=== PATIENT | female | born 1955 | race Caucasian/White ===

== ENCOUNTER 2019-04-14 16:58 | Inpatient (IN) | payer MEDICARE, OTHER ==
[~2019-04-14] VITALS: Ht 170.2 cm; Wt 80.7 kg
--- NOTE | 2019-04-14 17:10 | NUR ---
Patient bib pvt ambulance from [facility] for GPS admission. Patient A/Ox3 with periods of delusions. Respiratory even and unlabored, no cough no sob. Denies any cp or n/v/d.
[2019-04-14] MEDS ORDERED: FURO40TA5 PO (17:25)
[2019-04-14] MEDS ORDERED: GABA-532 PO (17:25)
[2019-04-14] MEDS ORDERED: DIVA500T4 PO (17:25)
[2019-04-14] MEDS ORDERED: DULO60CA45 PO (17:26)
[2019-04-14] MEDS ORDERED: CLON0.2T12 PO (17:26)
[2019-04-14] MEDS ORDERED: BACL20TA PO (17:26)
[2019-04-14] MEDS ORDERED: PANT40TA2 PO (17:35)
[2019-04-14] MEDS ORDERED: EMPA10TA PO (17:55)
[2019-04-14] MEDS ORDERED: ASPI-869 PO (17:55)
[2019-04-14] MEDS ORDERED: LEVO25TA2 PO (17:55)
[2019-04-14] MEDS ORDERED: HYDR8TAB2 PO (17:58)
[2019-04-14] MEDS ORDERED: CYCL10TA9 PO (17:58)
[2019-04-14] MEDS ORDERED: IBUP-1953 PO (17:58)
--- NOTE | 2019-04-14 18:00 | NUR ---
Report given to MIRIAN Gilmore
[2019-04-14] MEDS ORDERED: MULT1TAB73 PO (18:01)
[2019-04-14] MEDS ORDERED: METO50TA16 PO (18:01)
[2019-04-14] MEDS ORDERED: ESTR2TAB5 PO (18:01)
[2019-04-14] MEDS ORDERED: DOCU-141 PO (18:02)
[2019-04-14] MEDS ORDERED: PSYL1PAC8 PO (18:02)
[2019-04-14] MEDS ORDERED: SUB--70 (18:04)
[2019-04-14] MEDS ORDERED: LORAZEPAM 1 MG TABLET PO PRN (18:15)
[2019-04-14] MEDS ORDERED: MAGNESIUM HYDROXIDE 30 ML LIQUID UDC PO PRN (18:15)
[2019-04-14] MEDS ORDERED: MAG HYDROX/AL HYDROX/SIMETH 30 ML LIQUID UDC PO PRN (18:15)
[2019-04-14] MEDS ORDERED: BLOOD SUGAR DIAGNOSTIC 1 EACH STRIP VI ONE (18:15)
[2019-04-14] MEDS ORDERED: ACETAMINOPHEN 325 MG TABLET PO PRN (18:15)
--- NOTE | 2019-04-14 18:19 | NUR ---
Patient transported to MHU in stable condition.
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
[2019-04-14] MEDS ORDERED: IBUPROFEN 400 MG TABLET PO PRN (20:00)
[2019-04-14] MEDS ORDERED: CLONIDINE HCL 0.2 MG TABLET PO PRN (20:00)
[2019-04-14] MEDS ORDERED: DEXTROSE 50% 50 ML DISP.SYRIN IV PRN (20:30)
[2019-04-14] MEDS: BLOOD SUGAR DIAGNOSTIC 1 EACH STRIP VI SCH (20:44)
[2019-04-14 21:10] VITALS: BP 142/80
[2019-04-14] MEDS: TEMAZEPAM 7.5 MG CAPSULE PO PRN (22:02)
[2019-04-15] MEDS ORDERED: HYDROMORPHONE HCL 2 MG TABLET ONE (00:47)
[2019-04-15] MEDS: HYDROMORPHONE HCL 2 MG TABLET PO PRN ×5 (00:48→21:35)
[2019-04-15] MEDS: PANTOPRAZOLE SODIUM 40 MG TABLET.DR PO SCH (06:13)
[2019-04-15] MEDS: BLOOD SUGAR DIAGNOSTIC 1 EACH STRIP VI SCH ×4 (06:48→20:28)
[2019-04-15 07:30] VITALS: BP 139/85
[2019-04-15] MEDS: LEVOTHYROXINE SODIUM 25 MCG TABLET PO SCH ×2 (07:32→07:38)
[2019-04-15 08:42] LABS: BASOPHILS # (AUTO) 0.1 K/uL (0.0-8.0); BASOPHILS % (AUTO) 0.9 % (0.0-2.0); EOSINOPHILS # (AUTO) 0.1 K/uL (0.0-0.7); EOSINOPHILS % (AUTO) 1.4 % (0.0-7.0); HEMATOCRIT 40.8 % (31.2-41.9); LYMPHOCYTES # (AUTO) 2.1 K/uL (20.0-40.0); LYMPHOCYTES % (AUTO) 22.8 % (20.5-51.5); MEAN CORPUSCULAR HEMOGLOBIN 24.4 uug (24.7-32.8); MEAN CORPUSCULAR HGB CONC 32 g/dL (32.3-35.6); MEAN CORPUSCULAR VOLUME 76.2 fL (75.5-95.3); MONOCYTES # (AUTO) 0.6 K/uL (2.0-10.0); MONOCYTES % (AUTO) 6.5 % (0.0-11.0); NEUTROPHILS # (AUTO) 6.2 K/uL (1.8-8.9); NEUTROPHILS % (AUTO) 68.4 % (38.5-71.5); PLATELET COUNT (AUTO) 394 K/uL (179-408); RED BLOOD CELL COUNT(AUTO) 5.36 MIL/uL (3.63-4.92); WHITE BLOOD COUNT (AUTO) 9.1 K/uL (3.8-11.8)
[2019-04-15] MEDS: FUROSEMIDE 40 MG TABLET PO SCH ×2 (08:50→16:53)
[2019-04-15] MEDS: METOPROLOL TARTRATE 50 MG TABLET PO SCH ×2 (08:50→16:53)
[2019-04-15] MEDS: BACLOFEN 20 MG TABLET PO SCH ×3 (08:51→16:53)
[2019-04-15] MEDS: DOCUSATE SODIUM 100 MG CAPSULE PO SCH (08:51)
[2019-04-15] MEDS: ESTRADIOL 1 MG TABLET PO SCH (08:51)
[2019-04-15] MEDS: GABAPENTIN 100 MG CAPSULE PO SCH ×2 (08:51→16:53)
[2019-04-15] MEDS: PSYLLIUM SEED PACKET PO SCH ×2 (08:52→16:53)
[2019-04-15] MEDS: MULTIVITAMINS,THERAPEUTIC TABLET PO SCH (08:52)
[2019-04-15] MEDS: ASPIRIN EC 325 MG TABLET.DR PO SCH (08:53)
[2019-04-15] MEDS ORDERED: Medication Not On Formulary EA (Empagliflozin (Jardiance) 10 MG) PO SCH (09:00)
[2019-04-15 09:54] LABS: BILIRUBIN,TOTAL 0.4 mg/dL (0.2-1.0); MAGNESIUM 2.3 mg/dL (1.8-2.4); POTASSIUM 3.9 mmol/L (3.5-5.1); TOTAL PROTEIN, SERUM 8.2 g/dL (6.4-8.2)
[2019-04-15] MEDS: INSULIN REGULAR, HUMAN 300 UNIT/3 ML VIAL SQ PRN (11:44)
[2019-04-15] MEDS: CYCLOBENZAPRINE HCL 10 MG TABLET PO SCH ×2 (14:00→21:30)
[2019-04-15 16:00] VITALS: BP 106/74
[2019-04-15 21:08] VITALS: BP 136/76
[2019-04-16] MEDS: CYCLOBENZAPRINE HCL 10 MG TABLET PO SCH ×3 (05:58→22:32)
[2019-04-16] MEDS: PANTOPRAZOLE SODIUM 40 MG TABLET.DR PO SCH (06:01)
[2019-04-16] MEDS: BLOOD SUGAR DIAGNOSTIC 1 EACH STRIP VI SCH ×4 (06:39→20:33)
[2019-04-16 07:30] VITALS: BP 151/85
[2019-04-16] MEDS: HYDROMORPHONE HCL 2 MG TABLET PO PRN ×4 (07:45→20:33)
[2019-04-16] MEDS: BACLOFEN 20 MG TABLET PO SCH ×3 (08:19→18:11)
[2019-04-16] MEDS: ESTRADIOL 1 MG TABLET PO SCH (08:19)
[2019-04-16] MEDS: ASPIRIN EC 325 MG TABLET.DR PO SCH (08:19)
[2019-04-16] MEDS: FUROSEMIDE 40 MG TABLET PO SCH ×2 (08:20→16:26)
[2019-04-16] MEDS: GABAPENTIN 100 MG CAPSULE PO SCH ×2 (08:20→16:26)
[2019-04-16] MEDS: DOCUSATE SODIUM 100 MG CAPSULE PO SCH (08:20)
[2019-04-16] MEDS: METOPROLOL TARTRATE 50 MG TABLET PO SCH ×2 (08:20→16:26)
[2019-04-16] MEDS: MULTIVITAMINS,THERAPEUTIC TABLET PO SCH (08:28)
[2019-04-16] MEDS: PSYLLIUM SEED PACKET PO SCH ×2 (08:28→16:28)
[2019-04-16] MEDS: INSULIN REGULAR, HUMAN 300 UNIT/3 ML VIAL SQ PRN (08:29)
--- NOTE | 2019-04-16 10:14 | NUR ---
Social Work Note/Initial Discharge Planning: Patient currently resides at [facility] [address] [place] [address]; ([phone]).Patient will contact admin coordinator to see if patient is welcomed back. medical office worker will work with the patient and the MD regarding appropriate discharge planning. medical office worker will form a safe and proper discharge.
[2019-04-16 12:03] VITALS: BP 129/81
--- NOTE | 2019-04-16 12:24 | NUR ---
Received patient awake, alert and oriented x4. Bed is in low and locked position. Patient is able to ambulate independently and perform self care and ADL's independently. Patient is medication adherent, no adverse reaction noted. Patient is focused on PRN pain medication. Patient educated about importance of taking medication as prescribed, educated about risks and benefits of medication. Able to verbalize understanding, she endorses severe pain due to chronic medical conditions, endorses her only relief is pain medication. Patient education about non-pharmacological pain relief techniques, verbalizes understanding. Patient education about impulse control and how to appropriately communicate her needs to staff, able to verbalize understanding.
--- NOTE | 2019-04-16 12:27 | NUR ---
Patient refused AM sliding scale insulin administration and refused accucheck before lunch. Patient states "I only check my blood sugar twice, I've been managing it on my own for 4 years now and I'm fine." Patient educated about importance of taking insulin and checking blood sugar, and risks and benefits of remaining adherent. Patient able to verbalize understanding but continues to refuse. Patient is showing no signs or symptoms of hypo/hyperglycemia. Patient educated about these symptoms and encouraged to inform staff if any of these occur, able to verbalize understanding. VSS at this time.
--- NOTE | 2019-04-16 13:15 | NUR ---
VS BP 129/81, heart rate 83, RR 15, 97% room air. Blood sugar 107 Patient reported severe pain 10/10 "everywhere. In my head, my back, all over." PRN Dilaudid administered with no adverse reaction. Patient tolerated medication well. Patient is alert and oriented x4. Respirations are even and unlabored, no signs of respiratory distress noted. Patient reports medication was effective, pain 2/10. Patient educated about non-pharmacological pain reduction techniques, able to verbalize understanding. Patient provided with diversional activities (television, reading, talking to others). Blood sugar is 107. Patient given snack and water. Tolerated food and fluids well. No insulin administered per sliding scale. Addendum: 04/16/19 at 1805 by SANDI MCCLENDON RN Blood sugar reading taken at 1600.
--- NOTE | 2019-04-16 14:05 | NUR ---
WOUND CARE CONSULT: PT PRESENTS AMBULATORY AND CONTINENT WITH MULTIPLE DRY SCABS AND SCARS TO UPPER AND LOWER EXTREMITIES, PRESENT ON ADMISSION. CALLUSES NOTED TO FEET. PT IS REFUSING TO WEAR SLIPPER SOCKS. WILL SEE PRN.
[2019-04-16 15:08] LABS: *BILIRUBIN,URIN NEGATIVE (NEGATIVE); *BLOOD, URINE NEGATIVE (NEGATIVE); *CLARITY,URINE SLIGHTLY CLOUDY (CLEAR); *COLOR,URINE YELLOW (YELLOW); *KETONES,URINE NEGATIVE (NEGATIVE); *UROBILINOGEN,URINE 0.2 E.U./dl (NORMAL); LEUKOCYTE ESTERASE ,URINE 1+ (NEGATIVE); NITRITE, URINE NEGATIVE (NEGATIVE); UGLUCOSE TRACE (NEGATIVE)
[2019-04-16 15:19] LABS: BACTERIA,URINE FEW /HPF (NONE SEEN); MUCUS,URINE MANY /LPF (0-FEW); RBC,URINE 0-3 /HPF (0-3); SQUAMOUS EPITHELIAL CELL,UR MODERATE /HPF (NONE SEEN)
[2019-04-16 16:00] VITALS: BP 146/63
--- NOTE | 2019-04-16 17:35 | NUR ---
VS BP 146/63, Pulse 93, Resp 16, 100% room air Patient reported severe pain 10/10 "in my whole body". PRN Dilaudid administered without adverse reaction. Patient tolerated well. Patient reports medication was effective, with pain reduced to 2/10. Patient is alert and oriented x4, sitting in the dining room socializing with other patients. Respirations are even and unlabored, no signs of respiratory distress noted. Patient tolerating food and fluids well. Will continue to monitor.
[2019-04-16 20:00] VITALS: BP 136/76
[2019-04-17] MEDS: HYDROMORPHONE HCL 2 MG TABLET PO PRN ×6 (01:28→22:41)
[2019-04-17] MEDS: CYCLOBENZAPRINE HCL 10 MG TABLET PO SCH ×3 (05:29→21:32)
[2019-04-17] MEDS: LEVOTHYROXINE SODIUM 25 MCG TABLET PO SCH (06:23)
[2019-04-17] MEDS: PANTOPRAZOLE SODIUM 40 MG TABLET.DR PO SCH (06:23)
[2019-04-17] MEDS: BLOOD SUGAR DIAGNOSTIC 1 EACH STRIP VI SCH ×4 (06:34→20:50)
[2019-04-17 07:30] VITALS: BP 140/80
--- NOTE | 2019-04-17 08:20 | NUR ---
Social Work Note/Family Contact: drop pit worker contacted patients adopted son Franki ([phone]) and left a voicemail in regard to patients treatment plan and discharge plan.
[2019-04-17] MEDS: METOPROLOL TARTRATE 50 MG TABLET PO SCH ×2 (08:34→16:37)
[2019-04-17] MEDS: NITROFURANTOIN/NITROFURAN MAC 100 MG CAPSULE PO SCH ×2 (08:34→16:36)
[2019-04-17] MEDS: GABAPENTIN 100 MG CAPSULE PO SCH ×2 (08:34→16:36)
[2019-04-17] MEDS: MULTIVITAMINS,THERAPEUTIC TABLET PO SCH (08:34)
[2019-04-17] MEDS: FUROSEMIDE 40 MG TABLET PO SCH ×2 (08:35→16:37)
[2019-04-17] MEDS: PSYLLIUM SEED PACKET PO SCH ×2 (08:35→16:42)
[2019-04-17] MEDS: BACLOFEN 20 MG TABLET PO SCH ×3 (08:35→16:38)
[2019-04-17] MEDS: ASPIRIN EC 325 MG TABLET.DR PO SCH (08:36)
[2019-04-17] MEDS: ESTRADIOL 1 MG TABLET PO SCH (08:36)
[2019-04-17] MEDS: DOCUSATE SODIUM 100 MG CAPSULE PO SCH (08:38)
--- NOTE | 2019-04-17 10:15 | NUR ---
Social Work Note/Individual Therapy: survey workers supervisor met with patient to provided brief counseling. Patient presented tearful and agitated. She stated that she feels frustration here at the hospital. This story writer provided emotional support and was actively listening to patient. This story writer helped patient identify the negative feelings and helped her change it to positive feelings. This story writer helped patient with positive problem skills due to patient having poor problem solving skills.
[2019-04-17 17:05] VITALS: BP 137/79
[2019-04-17 19:56] VITALS: BP 140/68
--- NOTE | 2019-04-18 00:30 | NUR ---
RECEIVED PATIENT IN ACTIVITY ROOM. LATER SAW HER PACING THE HALLWAY A FEW TIMES AND GOING BACK TO WATCH T.V. BECOMES IRRITABLE WHEN DEMANDS ARE NOT MET.SHE WANTED HER PAIN MEDICATION AND WHEN TOLD TO WAIT TILL IT WAS TIME SHE SAID 'I HAVE NEVER KNOWN A PAIN FREE LIFE". SHE REFUSED TO HAVE HER BLOOD SUGAR CHECKED. HOWEVER SHOWS NO SIGNS OF HYPOGLYCEMIA.ENCOURAGED TO LET STAFF KNOW IF SHE DOES.WILL CONTINUE TO MONITOR.
[2019-04-18] MEDS: LEVOTHYROXINE SODIUM 25 MCG TABLET PO SCH ×2 (06:23→06:35)
[2019-04-18] MEDS: CYCLOBENZAPRINE HCL 10 MG TABLET PO SCH ×3 (06:23→23:06)
[2019-04-18] MEDS: PANTOPRAZOLE SODIUM 40 MG TABLET.DR PO SCH (06:23)
[2019-04-18] MEDS: BLOOD SUGAR DIAGNOSTIC 1 EACH STRIP VI SCH ×4 (06:37→20:07)
[2019-04-18] MEDS: HYDROMORPHONE HCL 2 MG TABLET PO PRN ×4 (06:39→20:04)
--- NOTE | 2019-04-18 06:46 | NUR ---
SLEPT FOR APPROX 06;30HRS. AGREED TO BLOOD SUGAR CHECKS THIS AM.LEVEL WAS 120.GIVEN DILAUDID 8MG THIS MARIA GUADALUPE AT 06;40
[2019-04-18 07:30] VITALS: BP 141/80
[2019-04-18] MEDS: BACLOFEN 20 MG TABLET PO SCH ×3 (08:30→17:24)
[2019-04-18] MEDS: DOCUSATE SODIUM 100 MG CAPSULE PO SCH (08:31)
[2019-04-18] MEDS: NITROFURANTOIN/NITROFURAN MAC 100 MG CAPSULE PO SCH ×2 (08:31→17:25)
[2019-04-18] MEDS: FUROSEMIDE 40 MG TABLET PO SCH ×2 (08:31→17:24)
[2019-04-18] MEDS: GABAPENTIN 100 MG CAPSULE PO SCH ×2 (08:31→17:25)
[2019-04-18] MEDS: METOPROLOL TARTRATE 50 MG TABLET PO SCH ×2 (08:31→17:25)
[2019-04-18] MEDS: ASPIRIN EC 325 MG TABLET.DR PO SCH (08:32)
[2019-04-18] MEDS: PSYLLIUM SEED PACKET PO SCH ×2 (08:32→17:00)
[2019-04-18] MEDS: ESTRADIOL 1 MG TABLET PO SCH (08:32)
[2019-04-18] MEDS: MULTIVITAMINS,THERAPEUTIC TABLET PO SCH (08:32)
--- NOTE | 2019-04-18 12:19 | NUR ---
Social Work Note/Individual Therapy: sawmill worker met with brief counseling. Patient presented delusional thoughts and stated that staff is not properly taking care of her needs. This bid writer addressed patients problem and helped her better communicate with the staff.
[2019-04-18 16:00] VITALS: BP 132/69
[2019-04-18 20:00] VITALS: BP 132/73
[2019-04-18] MEDS ORDERED: MIRALAX 17 GM POWD.PACK PO ONE (20:30)
--- NOTE | 2019-04-18 20:30 | NUR ---
GPS: Pt.is upset,angry,crying and complaining that it's been 4 days and she has not spoken to her printer repair technician yet. Pt.has concerns regarding her bowels. KAMRAN Camarillo was made aware with new order. Pt.refused Miralax x1 dose ordered now.
[2019-04-19] MEDS: HYDROMORPHONE HCL 2 MG TABLET PO PRN ×5 (00:05→22:09)
[2019-04-19] MEDS: TEMAZEPAM 7.5 MG CAPSULE PO PRN (00:54)
[2019-04-19] MEDS: CYCLOBENZAPRINE HCL 10 MG TABLET PO SCH ×3 (06:00→21:56)
[2019-04-19] MEDS: LEVOTHYROXINE SODIUM 25 MCG TABLET PO SCH (06:41)
[2019-04-19] MEDS: BLOOD SUGAR DIAGNOSTIC 1 EACH STRIP VI SCH ×5 (06:41→22:10)
[2019-04-19] MEDS: PANTOPRAZOLE SODIUM 40 MG TABLET.DR PO SCH (06:43)
[2019-04-19 07:30] VITALS: BP 128/80
[2019-04-19] MEDS: INSULIN REGULAR, HUMAN 300 UNIT/3 ML VIAL SQ PRN ×3 (07:38→22:11)
[2019-04-19] MEDS: ASPIRIN EC 325 MG TABLET.DR PO SCH (08:25)
[2019-04-19] MEDS: BACLOFEN 20 MG TABLET PO SCH ×3 (08:26→17:11)
[2019-04-19] MEDS: NITROFURANTOIN/NITROFURAN MAC 100 MG CAPSULE PO SCH ×2 (08:26→17:11)
[2019-04-19] MEDS: ESTRADIOL 1 MG TABLET PO SCH (08:26)
[2019-04-19] MEDS: FUROSEMIDE 40 MG TABLET PO SCH ×2 (08:26→17:11)
[2019-04-19] MEDS: GABAPENTIN 100 MG CAPSULE PO SCH ×2 (08:26→17:11)
[2019-04-19] MEDS: DOCUSATE SODIUM 100 MG CAPSULE PO SCH (08:26)
[2019-04-19] MEDS: PSYLLIUM SEED PACKET PO SCH ×2 (08:27→17:00)
[2019-04-19] MEDS: METOPROLOL TARTRATE 50 MG TABLET PO SCH ×2 (08:27→17:00)
[2019-04-19] MEDS: MULTIVITAMINS,THERAPEUTIC TABLET PO SCH (08:27)
--- NOTE | 2019-04-19 09:50 | NUR ---
Social Work Note/Family Contact: telecommunications linesworker attempted to contact patients adopted son Franki ([phone]) and this literary writer was unable to reach him. This literary writer left a voicemail to call back.
--- NOTE | 2019-04-19 09:51 | NUR ---
Social Work Note/PC Hearing Notification: transit survey worker contacted patients adopted son Franki, ([phone]) and left a voicemail that patients probable cause of hearing today.
--- NOTE | 2019-04-19 13:09 | NUR ---
Social Work Note/Firearms Report: Neighborhood Conservation Officer completed and submitted a [employer] firearms report for 5250 grave disability certification. A copy of report has been placed in patient chart.
[2019-04-19] MEDS: DULOXETINE 30 MG CAPSULE.DR PO SCH (13:37)
--- NOTE | 2019-04-19 14:38 | NUR ---
Patient has been irritable and aggressive all day. Multiple complaints made about the Doctors and the staff. Patient walking up and down hallway , refusing to wear hospital socks, despite many requests by the staff. Patient receiving multiple pain medications, and educated on noncompliance being a safety issue. Patient not interested, and behavior escalates when challenged. Nurse programming development project manager aware of patients complaints. Continuing to monitor patient for safety and behavior issues.
--- NOTE | 2019-04-19 17:15 | NUR ---
Patient refused to allow VS to be taken this afternoon. Blood pressure medication was held. Patient also refused insulin this evening with a blood glucose of 145.
[2019-04-19] MEDS ORDERED: HYDROMORPHONE HCL 2 MG TABLET PO PRN (18:15)
[2019-04-19] MEDS ORDERED: CYCLOBENZAPRINE HCL 10 MG TABLET PO PRN (18:15)
[2019-04-19] MEDS ORDERED: DOCUSATE SODIUM 100 MG CAPSULE PO SCH (21:00)
[2019-04-20] MEDS: HYDROMORPHONE HCL 2 MG TABLET PO PRN ×3 (02:23→11:27)
[2019-04-20] MEDS: CYCLOBENZAPRINE HCL 10 MG TABLET PO SCH ×2 (06:25→11:28)
[2019-04-20] MEDS: PANTOPRAZOLE SODIUM 40 MG TABLET.DR PO SCH (06:25)
[2019-04-20] MEDS: BLOOD SUGAR DIAGNOSTIC 1 EACH STRIP VI SCH ×2 (06:33→11:30)
[2019-04-20] MEDS: LEVOTHYROXINE SODIUM 25 MCG TABLET PO SCH (06:59)
[2019-04-20 07:30] VITALS: BP 105/51
--- NOTE | 2019-04-20 08:11 | NUR ---
Social Work Note/Discharge: Patient will be discharged to [facility] to [facility] [place] [address] [place] [address]; ) via Ambulance transportation at 12pm. Knife Edger spoke with Meera, Brim Stiffener at [facility] [place]; ([phone]), who stated patient will be accepted at facility today. Patient is alert and oriented x3-4, and is not able to plan for self-care at this time, but is willing to accept care provided for her at the facility. Patient denies any suicidal or homicidal ideations. Patient is aware and agreeable with discharge plans. Patients adopted son Franki ([phone]) is aware and agreeable. Patient will continue to follow-up with her Psychiatrist Dr. Kumar and Perforating Machine Operator Dr. Vital at [facility]. Patient will follow-up at the center. Patient presents with euthymic mood and congruent affect.
--- NOTE | 2019-04-20 08:12 | NUR ---
Social Work Note/Family Contact: wet room worker contacted patients adopted son Franki ([phone]) that patient will be discharged today and left a voicemail.
--- NOTE | 2019-04-20 08:13 | NUR ---
Social Work Note: ditch worker spoke with patient for facility options. Per patient, she agreed to go to [facility]
[2019-04-20] MEDS: NITROFURANTOIN/NITROFURAN MAC 100 MG CAPSULE PO SCH (08:18)
[2019-04-20] MEDS: GABAPENTIN 100 MG CAPSULE PO SCH (08:18)
[2019-04-20] MEDS: BACLOFEN 20 MG TABLET PO SCH (08:18)
[2019-04-20] MEDS: ASPIRIN EC 325 MG TABLET.DR PO SCH (08:18)
[2019-04-20] MEDS: DULOXETINE 30 MG CAPSULE.DR PO SCH (08:18)
[2019-04-20] MEDS: FUROSEMIDE 40 MG TABLET PO SCH (08:20)
[2019-04-20] MEDS: ESTRADIOL 1 MG TABLET PO SCH (08:21)
[2019-04-20] MEDS: MULTIVITAMINS,THERAPEUTIC TABLET PO SCH (08:29)
[2019-04-20] MEDS: PSYLLIUM SEED PACKET PO SCH (08:30)
[2019-04-20 09:00] VITALS: BP 105/51
[2019-04-20] MEDS: METOPROLOL TARTRATE 50 MG TABLET PO SCH (09:00)
[2019-04-20] MEDS ORDERED: DOCUSATE SODIUM 250 MG CAPSULE PO SCH (09:00)
--- NOTE | 2019-04-20 13:00 | NUR ---
Gps/Hat Finisher-Tries to review discharged instructions, patient refused to sign. All belongings returned back to patient( tablet, cell phone , purse, check books). Patient taking her times, kept asking for simple needs, refused to be rushed .Called [facility], SNF report was given to Debora Doyle , patient assigned to bed # 136-D.
--- NOTE | 2019-04-20 13:20 | NUR ---
Gps/Senior Mechanical Designer- Discharged to [facility] [place], in no distress, in good spirit ,no new c/o offered.
[2019-04-26] MEDS ORDERED: DULO60CA45 PO (16:02)
[2019-04-26] MEDS ORDERED: ARIP5TAB10 PO (16:02)
[2019-04-26] MEDS ORDERED: DOXY100C2 PO (16:02)
== END 2019-04-20 13:25 | DRG 885 ==
LOC: ER 17:01 → GPS 17:52
PROVIDERS: ADMIT Psychiatry & Neurology Psychiatry; ATTEND Hospitalist
PROC: GZ56ZZZ Individual Psychotherapy, Supportive (ICD-10-PCS; principal; 2019-04-16)
DX: F33.2 Major depressive disorder, recurrent severe without psychotic features (principal); I13.0 Hypertensive heart and chronic kidney disease with heart failure and stage 1 through stage 4 chronic kidney disease, or unspecified chronic kidney disease; N39.0 Urinary tract infection, site not specified; E44.1 Mild protein-calorie malnutrition; F11.20 Opioid dependence, uncomplicated; J98.11 Atelectasis; Q07.00 Arnold-Chiari syndrome without spina bifida or hydrocephalus; E11.22 Type 2 diabetes mellitus with diabetic chronic kidney disease; N18.9 Chronic kidney disease, unspecified; I50.9 Heart failure, unspecified; M19.90 Unspecified osteoarthritis, unspecified site; E11.42 Type 2 diabetes mellitus with diabetic polyneuropathy; Z86.73 Personal history of transient ischemic attack (TIA), and cerebral infarction without residual deficits; G89.4 Chronic pain syndrome; J44.9 Chronic obstructive pulmonary disease, unspecified; R23.8 Other skin changes; E78.5 Hyperlipidemia, unspecified; E03.9 Hypothyroidism, unspecified
CPT/HCPCS: 36415; 71045; 83735; 84100; 85025; 87086; 93005; A4663; J1815

== ENCOUNTER 2019-04-24 19:00 | Inpatient (IN) | payer MEDICARE, OTHER ==
[~2019-04-24] VITALS: Ht 165.1 cm; Wt 77.1 kg
[2019-04-24] MEDS ORDERED: IV NORMAL SALINE 1000 ML BAG IV ONE ×2 (22:00→23:45)
[2019-04-24] MEDS ORDERED: VANCOMYCIN IV 1,000 MG in IV DEXTROSE 5% 250 ML IV ONE (22:00)
[2019-04-24] MEDS ORDERED: VANCOMYCIN IV 200 ML ONE (22:08)
[2019-04-24 22:16] LABS: BASOPHILS # (AUTO) 0.1 K/uL (0.0-8.0); BASOPHILS % (AUTO) 1.1 % (0.0-2.0); EOSINOPHILS # (AUTO) 0.2 K/uL (0.0-0.7); EOSINOPHILS % (AUTO) 1.7 % (0.0-7.0); HEMATOCRIT 41.2 % (31.2-41.9); HEMOGLOBIN 13.3 g/dL (10.9-14.3); LYMPHOCYTES # (AUTO) 3.2 K/uL (20.0-40.0); MEAN CORPUSCULAR HEMOGLOBIN 24.8 uug (24.7-32.8); MEAN CORPUSCULAR HGB CONC 32 g/dL (32.3-35.6); MEAN CORPUSCULAR VOLUME 76.5 fL (75.5-95.3); MONOCYTES # (AUTO) 0.7 K/uL (2.0-10.0); MONOCYTES % (AUTO) 6.8 % (0.0-11.0); NEUTROPHILS # (AUTO) 5.5 K/uL (1.8-8.9); NEUTROPHILS % (AUTO) 57.4 % (38.5-71.5); PLATELET COUNT (AUTO) 367 K/uL (179-408); RED BLOOD CELL COUNT(AUTO) 5.38 MIL/uL (3.63-4.92); WHITE BLOOD COUNT (AUTO) 9.7 K/uL (3.8-11.8)
[2019-04-24 22:18] LABS: CARBON DIOXIDE 33 mmol/L (21-32); CHLORIDE 100 mmol/L (98-107); POTASSIUM 3.7 mmol/L (3.5-5.1)
[2019-04-24 22:24] LABS: ALANINE AMINOTRANSFERASE 31 U/L (14-59); ALKALINE PHOSPHATASE 147 U/L (50-136); ASPARTATE AMINOTRANSFERASE 23 U/L (15-37); BILIRUBIN,DIRECT 0.1 mg/dL (0.0-0.2); BILIRUBIN,TOTAL 0.3 mg/dL (0.2-1.0); CREATININE 1.1 mg/dL (0.6-1.3); GLUCOSE 146 mg/dL (74-106); TOTAL PROTEIN, SERUM 8.7 g/dL (6.4-8.2); UREA NITROGEN, BLOOD 23 mg/dL (7-18)
[2019-04-24 22:25] LABS: ACETAMINOPHEN < 2.0 ug/mL (10-30)
[2019-04-24 22:27] LABS: ETHANOL < 3 MG/DL (0-0)
--- NOTE | 2019-04-24 23:00 | NUR ---
EPIC PLANNING DIRECTOR (ROMEO EDMONDSON) ON THE PHONE WITH ERMD OK TO ADMIT TO TELE RM DX: CELLULITIS
--- NOTE | 2019-04-24 23:21 | NUR ---
HAND OFF AND SBAR GIVEN TO JUAN RN PT OK TO ADMIT TO M/S UNDER DELVIS DX: CELLULITIS PT RA RECEIVED ABX ORDERED PER IV CANCELLED PICC LINE REQUEST MONITORED ACCORDINGLY
--- NOTE | 2019-04-25 00:04 | NUR ---
TRANSPORTED TO FLOOR VIA GURNEY ACC BY ER BLADE GRADER OPERATOR (DOLORES) BELONGINGS LIST ACCOUNTED FOR
[2019-04-25 00:15] VITALS: BP 140/70
--- NOTE | 2019-04-25 00:15 | NUR ---
NEW ADMIT PATIENT RECEIVED INTO CARE VIA GURNEY FROM ER. PATIENT IS AMBULATORY AND IS ALERT/ORIENTED X3 COMPLAINING OF GENERALIZED PAIN RELATED TO HER CHRONIC HEALTH CONDITIONS. PATIENT STATES HAS ADVANCED DIRECTIVE STATING DNR/COMFORT MEASURES ONLY. NURSE ADVISED MUST PROVIDE COPY. WILL HAVE AM SHIFT NOTIFY MD WITH REGARD TO PATIENT'S WISHES FOR RESUSCITATION. PATIENT HAS MULTIPLE SORES IN DIFFERENT STAGES OF HEALING WHICH SHE CLAIMS IS STAPH. WILL HAVE AM SHIFT FOLLOWUP WITH MD TO ORDER INFECTIOUS DISEASE CONSULT. SAFETY AND FALL PRECAUTION MEASURES ARE IN PLACE. CALL LIGHT AND PERSONAL ITEMS ARE WITHIN REACH. WILL CONTINUE TO MONITOR AND ASSESS.
[2019-04-25] MEDS ORDERED: ACETAMINOPHEN 325 MG TABLET PO PRN (00:45)
[2019-04-25] MEDS ORDERED: ONDANSETRON 4 MG/2 ML VIAL IV PRN (00:45)
[2019-04-25] MEDS ORDERED: ZOLPIDEM 5 MG TABLET PO PRN ×2 (00:45)
[2019-04-25] MEDS: HYDROMORPHONE 1 MG/1 ML DISP.SYRIN IV PRN ×5 (01:53→21:34)
[2019-04-25 05:59] VITALS: BP 143/80
--- NOTE | 2019-04-25 06:00 | NUR ---
Patient slept throughout night following admission to unit, with complaints of pain addressed with prescribed analgesics. Patient has signed POLST for DNR/comfort measures only, and it has been flagged in her chart for physician signature. All nursing care met promptly and patient is warm, dry and comfortable. All safety and fall precaution measures remain in place. Call light and personal items are within reach at all times.
[2019-04-25] MEDS: PANTOPRAZOLE SODIUM 40 MG TABLET.DR PO SCH (06:02)
--- NOTE | 2019-04-25 06:32 | NUR ---
Patient refused blood draw with lab this morning. Lab said they will retry again at 1000h
--- NOTE | 2019-04-25 08:00 | NUR ---
received pt. alert oriented x4. Upon entering room pt. appears paranoid and that she hears everyone talking about her. Reoriented pt. Pt. denies pain/ discomfort. Pt. denies SOB/ difficulty breathing. Pt. has rashes on bilateral arms and legs. Safety measures in place. call light within reach. will continue to monitor pt.
--- NOTE | 2019-04-25 10:48 | NUR ---
Clinical Pharmacy Note: Vancomycin Pharmacy to Dose Subjective: To start vancomycin in this 63 y/o female for indication of cellulitis Objective: weight 77kg height 165cm BUN/Scr 23/1.1 wbc 9.7 temp 97.7 Vanco 1gm in ER 04/25 @5227 Assessment/Plan Will start regimen of vanco 1gm q18hr for estimated trough of 16.22, 2nd dose tonight at 1700. Will order trough before 4th scheduled dose (not ordered yet). Will also follow renal function and adjust if were to change. Will follow
[2019-04-25 11:22] VITALS: BP 140/72
[2019-04-25] MEDS: ARIPIPRAZOLE 5 MG TABLET PO SCH (11:44)
[2019-04-25] MEDS: DULOXETINE 60 MG CAPSULE.DR PO SCH (11:44)
--- NOTE | 2019-04-25 12:13 | NUR ---
WOUND CARE CONSULT: PT PRESENTS WITH MULTIPLE DRY SCABS AND SCARS MAINLY ON EXTREMITIES WITH WOUNDS, REDNESS AND TENDERNESS TO PLANTAR FEET, ALL PRESENT ON ADMISSION. RECOMMEND DPM CONSULT. DR PIRES NOTIFIED OF DPM CONSULT REQUEST. WILL SEE PRN. PT IS AMBULATORY AND CONTINENT. Addendum: 04/25/19 at 1214 by CHRIS SEWELL RN Amended: Links added.
[2019-04-25 15:26] VITALS: BP 137/74
--- NOTE | 2019-04-25 15:27 | NUR ---
Rose Grader Consultation: 2:40pm: SW met with this patient, who was in her assigned room, in bed. Patient is awake, receptive to meeting with this SW. Patient is oriented x 4. [facility] in [place]. Patient states that she chose to leave the SNF yesterday, against medical advice, because "too many people knew about what was in my medical chart". Patient stated she returned back to [place] ED for treatment of an infection. Patient is cooperative with this SW, answering all questions appropriately. Patient maintained appropriate eye contact, affect and behavior were WNL. No SI or HI. Patient is hard of hearing, requiring this SW to speak loud. Patient states she has a cousin who lives in [place], Faisal Stinson. Patient states she has one son who lives in [place], Franki Cornell, . Patient states that she speaks with her son on a daily basis, and he is aware of her current hospitalization. Discharge plans discussed, and patient expressed being content with returning to another SNF (patient has been living in a SNF for the past several years). SW explored other psychosocial concerns with the patient, and patient stated that her SSI/SSD income was recently discontinued. CHADD provided patient with the phone [facility] office [phone], and informed the patient that she can call to find out why her SSD was discontinued and what was needed for them to re-instate her benefits. Patient thanked CHADD for this information, and stated she would follow-up with the DPSS office. Patient stated not having any other questions or concerns at this time. CHADD thanked patient for her time. CHADD then met with vocational case manager Kitty and discussed above with Kitty. Case Management to assist patient with discharge planning. No further SS interventions needed at this time, however health care social worker will be available to the patient, if needed.
[2019-04-25] MEDS: VANCOMYCIN IV 1,000 MG in IV DEXTROSE 5% 250 ML IV SCH (16:46)
[2019-04-25] MEDS ORDERED: CYCLOBENZAPRINE HCL 10 MG TABLET PO PRN ×2 (18:30→19:30)
--- NOTE | 2019-04-25 18:37 | NUR ---
Psych evaluation done by Dr. Gómez. New psych meds in place. Pt. denies SI/ HI. Pt. is less aggressive and more cooperative with plan of care. Assessed pt. for wounds with wound care nurse. Child Study Team Director came to see pt. with no new orders. Pt. c/o pain q4 hours and requests ordered Dilaudid. safety measures in place. call light within reach. will endorse to pm nurse.
[2019-04-25] MEDS ORDERED: DEXTROSE 50% 50 ML DISP.SYRIN IV PRN (19:30)
[2019-04-25] MEDS ORDERED: INSULIN REGULAR, HUMAN 300 UNIT/3 ML VIAL SQ PRN (19:30)
--- NOTE | 2019-04-25 20:00 | NUR ---
PATIENT RECEIVED INTO CARE, LAYING IN BED, SLEEPING. PATIENT HAS NO S/S OF ACUTE DISTRESS OR DISCOMFORT NOTED/OBSERVED BY NURSE. SAFETY AND FALL PRECAUTION MEASURES ARE IN PLACE. CALL LIGHT AND PERSONAL ITEMS ARE WITHIN REACH. WILL CONTINUE TO MONITOR AND ASSESS.
[2019-04-25 21:01] VITALS: BP 144/45
[2019-04-25] MEDS: METOPROLOL TARTRATE 50 MG TABLET PO SCH (21:29)
[2019-04-25] MEDS: BLOOD SUGAR DIAGNOSTIC 1 EACH STRIP VI SCH (21:33)
[2019-04-26] MEDS: HYDROMORPHONE 1 MG/1 ML DISP.SYRIN IV PRN ×3 (02:05→11:19)
--- NOTE | 2019-04-26 02:15 | NUR ---
Patient complaining of burning/irritation at site of right wrist IV cath. Patient is requesting a PICC line or midline because she has such a hard time with getting IV caths inserted. Nurse explained that procedures for PICC/midlines are invasive procedures. Patient stated that it would be okay because they put her in a "twilight sleep." Nurse advised that 'twilight sleep' not always used, sometimes will use lidocaine only to numb the area. Patient said it was okay to try for new IV cath, which was subsequently placed on her left upper arm, 22g, saline lock.
[2019-04-26 04:17] VITALS: BP 128/46
[2019-04-26] MEDS: PANTOPRAZOLE SODIUM 40 MG TABLET.DR PO SCH (06:22)
--- NOTE | 2019-04-26 06:22 | NUR ---
Patient refused prescribed synthroid stating it makes her "reverse T3 go delores high." Nurse explained risks/benefits x3, patient still refused.
[2019-04-26] MEDS: BLOOD SUGAR DIAGNOSTIC 1 EACH STRIP VI SCH (06:50)
[2019-04-26] MEDS ORDERED: LEVOTHYROXINE SODIUM 25 MCG TABLET PO SCH (07:00)
[2019-04-26] MEDS: ARIPIPRAZOLE 5 MG TABLET PO SCH (08:04)
[2019-04-26] MEDS: DULOXETINE 60 MG CAPSULE.DR PO SCH (08:05)
[2019-04-26] MEDS: GABAPENTIN 100 MG CAPSULE PO SCH ×2 (08:05→16:04)
[2019-04-26] MEDS: BACLOFEN 20 MG TABLET PO SCH ×3 (08:05→16:05)
[2019-04-26] MEDS: METOPROLOL TARTRATE 50 MG TABLET PO SCH (08:05)
[2019-04-26] MEDS ORDERED: ESTRADIOL 1 MG TABLET PO SCH (09:00)
[2019-04-26] MEDS ORDERED: METOPROLOL TARTRATE 50 MG TABLET PO SCH (09:00)
[2019-04-26] MEDS ORDERED: Medication Not On Formulary EA (Multivitamins (Multivitamin) 1 TAB) PO SCH (09:00)
[2019-04-26] MEDS ORDERED: Medication Not On Formulary EA (Empagliflozin (Jardiance) 10 MG) PO SCH (09:00)
[2019-04-26] MEDS ORDERED: DOCUSATE SODIUM 100 MG CAPSULE PO SCH (09:00)
[2019-04-26] MEDS ORDERED: ESTRADIOL 2 MG PO SCH (09:00)
[2019-04-26] MEDS ORDERED: MULTIVITAMINS,THERAPEUTIC TABLET PO SCH (09:00)
[2019-04-26] MEDS ORDERED: FUROSEMIDE 40 MG TABLET PO SCH (09:00)
[2019-04-26] MEDS ORDERED: ASPIRIN EC 325 MG TABLET.DR PO SCH (09:00)
--- NOTE | 2019-04-26 09:44 | NUR ---
Clinical Pharmacy Note: Vancomycin Pharmacy to Dose Subjective: To continue vancomycin in this 63 y/o female for indication of cellulitis Objective: weight 77kg height 165cm BUN/Scr 23/1.1(04/24) wbc 9.7 (04/24) temp 97.4 Assessment/Plan Will continue same dose of vanco 1gm IV q18hr for today. 3rd dose tonight at 1100. Will order trough before 4th scheduled dose (ordered for 04/27 at 0430- RN has been informed to hold 0500 dose if vanco trough level above 20 mcg/ml). Pharmacy will review in am & adjust the dose if needed. Will follow
[2019-04-26] MEDS: VANCOMYCIN IV 1,000 MG in IV DEXTROSE 5% 250 ML IV SCH (10:27)
[2019-04-26 11:47] VITALS: BP 126/70
--- NOTE | 2019-04-26 12:35 | NUR ---
pt refused blood culture draw made aware
[2019-04-26 15:31] VITALS: BP 127/61
--- NOTE | 2019-04-26 16:20 | NUR ---
pt refused to do the wound picture made aware
--- NOTE | 2019-04-26 16:57 | NUR ---
dc orders received noted and carried out,dc heplock per md orders dc instruction and education given to the pt pt verbalized understanding all the instruction ,dc pt to mhu via wheel chair in stable condition
[2019-04-27] MEDS ORDERED: VITAMINS A AND D OINT TP SCH (09:00)
== END 2019-04-26 17:09 | DRG 603 ==
LOC: ER 19:02 → MEDSURG3 23:41
PROVIDERS: ADMIT Internal Medicine; ATTEND Nurse Practitioner Acute Care
DX: L03.90 Cellulitis, unspecified (principal); F33.3 Major depressive disorder, recurrent, severe with psychotic symptoms; I13.0 Hypertensive heart and chronic kidney disease with heart failure and stage 1 through stage 4 chronic kidney disease, or unspecified chronic kidney disease; G95.0 Syringomyelia and syringobulbia; L01.09 Other impetigo; B95.61 Methicillin susceptible Staphylococcus aureus infection as the cause of diseases classified elsewhere; J45.909 Unspecified asthma, uncomplicated; L85.3 Xerosis cutis; K21.9 Gastro-esophageal reflux disease without esophagitis; Z79.82 Long term (current) use of aspirin; Q07.00 Arnold-Chiari syndrome without spina bifida or hydrocephalus; G89.4 Chronic pain syndrome; E03.9 Hypothyroidism, unspecified; E78.5 Hyperlipidemia, unspecified; E11.22 Type 2 diabetes mellitus with diabetic chronic kidney disease; E11.65 Type 2 diabetes mellitus with hyperglycemia; N18.9 Chronic kidney disease, unspecified; I50.9 Heart failure, unspecified; B95.8 Unspecified staphylococcus as the cause of diseases classified elsewhere; F41.9 Anxiety disorder, unspecified; H91.90 Unspecified hearing loss, unspecified ear; J44.9 Chronic obstructive pulmonary disease, unspecified; Z79.899 Other long term (current) drug therapy; Z79.890 Hormone replacement therapy; Z79.84 Long term (current) use of oral hypoglycemic drugs; M19.90 Unspecified osteoarthritis, unspecified site; L01.00 Impetigo, unspecified
CPT/HCPCS: 36415; 71045; 85025; 93005; A4663; G0378; G0480; G0480-TC; J1170; J1815; J3370; J7030; J7060

== ENCOUNTER 2019-04-26 17:29 | Inpatient (IN) | payer MEDICARE, OTHER ==
[~2019-04-26] VITALS: Ht 170.2 cm; Wt 81.0 kg
[~2019-04-26 17:29] MED LIST: ARIP5TAB10 PO; ASPI-869 PO; BACL20TA PO; CLON0.2T12 PO; CYCL10TA9 PO; DOCU-141 PO; DOXY100C2 PO; DULO60CA45 PO; EMPA10TA PO; ESTR2TAB5 PO; FURO40TA5 PO; GABA-532 PO; HYDR8TAB2 PO; IBUP-1953 PO; LEVO25TA2 PO; METO50TA16 PO; MULT1TAB73 PO; PANT40TA2 PO; PSYL1PAC8 PO; SUB--70
[2019-04-26] MEDS ORDERED: MAGNESIUM HYDROXIDE 30 ML LIQUID UDC PO PRN (18:00)
[2019-04-26] MEDS ORDERED: ACETAMINOPHEN 325 MG TABLET PO PRN (18:00)
[2019-04-26] MEDS ORDERED: BLOOD SUGAR DIAGNOSTIC 1 EACH STRIP VI ONE (18:00)
[2019-04-26] MEDS ORDERED: MAG HYDROX/AL HYDROX/SIMETH 30 ML LIQUID UDC PO PRN (18:00)
--- NOTE | 2019-04-26 18:25 | NUR ---
pt received from ms to room 327 for bipolar ,pt is axox4 , made aware for admission
[2019-04-26 20:00] VITALS: BP 164/81
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
--- NOTE | 2019-04-26 20:30 | NUR ---
Spoke with Brigette from [facility] pharmacy who advised need to have MD verify flexeril dose/timing in morning due to possible conflicts with other medications of the same class. Brigette also stated needed consent form signed for psych medications. Nurse advised will have consent signed. Nurse addressed unverified dilaudid prescription of 8mg PO which was being held for conflict with patient's allergy to morphine; nurse explained patient has been taking this medication as prescribed while at SNF and as 1mg IV push while in this facility with no adverse side effects verbalized by patient or noted/observed by nurse. Brigette stated she would advise pharmacist.
[2019-04-26] MEDS ORDERED: METOPROLOL TARTRATE 50 MG TABLET PO SCH (21:00)
[2019-04-26] MEDS ORDERED: DOXYCYCLINE HYCLATE 100 MG TABLET PO SCH (21:15)
--- NOTE | 2019-04-26 21:15 | NUR ---
Patient requesting po dilaudid, is claiming she is in a lot of pain right now and feels she experiencing withdrawals. Nurse advised she would contact pharmacy again.
--- NOTE | 2019-04-26 21:30 | NUR ---
Nurse contacted [facility] pharmacy again and spoke with Brigette regarding unverified prescription of dilaudid 8mg PO. Nurse explained again that patient does not have an allergic reaction when taking this medication despite patient's claim to being allergic to morphine. Brigette advised would notify pharmacist.
--- NOTE | 2019-04-26 23:00 | NUR ---
Patient requesting PO dilaudid again. Nurse apologized and explained still waiting for outside pharmacy to verify order, as hospital pharmacy is closed for the night. Patient again stated that she feels like she is in withdrawals. Nurse explained that she would try pharmacy again in 30 minutes. Patient requesting Ibuprofen for time being. Nurse advised Tylenol available but patient states that it won't help her. Patient requesting something to help her sleep. Nurse advised will verify if she has sleep aid medication ordered.
--- NOTE | 2019-04-26 23:39 | NUR ---
Nurse called outside pharmacy again regarding prescribed PO dilaudid, was advised that pharmacist would return my call as soon as possible.
[2019-04-26] MEDS: ZOLPIDEM 5 MG TABLET PO PRN (23:50)
[2019-04-27] MEDS ORDERED: CYCLOBENZAPRINE HCL 10 MG TABLET PO SCH
[2019-04-27] MEDS: HYDROMORPHONE HCL 2 MG TABLET PO PRN ×3 (00:14→17:16)
--- NOTE | 2019-04-27 05:04 | NUR ---
Patient slept 1-1/2 hours
--- NOTE | 2019-04-27 06:00 | NUR ---
Patient slept intermittently throughout night with complaints of pain addressed with prescribed analgesics. Patient was compliant with all medications except for levothyroxine, which she refused because she states it will elevate her reverse T3. Patient has been provided her MHU Patient's Rights, but does refuse for her picture to be taken or to have pictures taken of her healing wounds covering her BL arms, BL legs, BL feet, and lower abdomen. Call light remains within reach at all times. Safety and fall precaution measures remain in place.
[2019-04-27] MEDS ORDERED: LEVOTHYROXINE SODIUM 25 MCG TABLET PO SCH (07:30)
[2019-04-27] MEDS ORDERED: PANTOPRAZOLE SODIUM 40 MG TABLET.DR PO SCH (07:30)
[2019-04-27] MEDS ORDERED: Medication Not On Formulary EA (Empagliflozin (Jardiance) 10 MG) PO SCH ×2 (09:00)
[2019-04-27] MEDS: PSYLLIUM SEED PACKET PO SCH ×2 (09:00→17:00)
[2019-04-27] MEDS ORDERED: ARIPIPRAZOLE 5 MG TABLET PO SCH (09:00)
[2019-04-27] MEDS: MULTIVITAMINS,THERAPEUTIC TABLET PO SCH (09:00)
[2019-04-27] MEDS ORDERED: DULOXETINE 60 MG CAPSULE.DR PO SCH (09:00)
[2019-04-27] MEDS ORDERED: GABAPENTIN 100 MG CAPSULE PO SCH (09:00)
[2019-04-27] MEDS: ASPIRIN EC 325 MG TABLET.DR PO SCH (09:10)
[2019-04-27] MEDS: BACLOFEN 20 MG TABLET PO SCH ×3 (09:10→17:15)
[2019-04-27] MEDS: ESTRADIOL 1 MG TABLET PO SCH (09:11)
[2019-04-27] MEDS: DOCUSATE SODIUM 100 MG CAPSULE PO SCH (09:11)
[2019-04-27] MEDS: FUROSEMIDE 40 MG TABLET PO SCH (09:11)
[2019-04-27] MEDS: METOPROLOL TARTRATE 25 MG TABLET PO SCH ×2 (09:21→21:02)
[2019-04-27] MEDS: DOXYCYCLINE HYCLATE 100 MG TABLET PO SCH ×2 (11:07→21:01)
[2019-04-27] MEDS: ARIPIPRAZOLE 5 MG TABLET PO SCH (11:07)
[2019-04-27] MEDS: DULOXETINE 60 MG CAPSULE.DR PO SCH (11:07)
[2019-04-27] MEDS: GABAPENTIN 100 MG CAPSULE PO SCH ×2 (11:07→17:15)
[2019-04-27] MEDS: CYCLOBENZAPRINE HCL 10 MG TABLET PO PRN ×2 (11:07→18:14)
[2019-04-27 11:38] VITALS: BP 165/79
--- NOTE | 2019-04-27 12:26 | NUR ---
Social Work Note/Silas Attestation: I, Nury DE LA VEGA, attest to the accuracy of the psychosocial assessment done on this patient by Nury DE LA VEGA on April 16, 2019. On the admission for April 16, 2019, the patient was admitted to [facility] on a 5150 hold for danger to herself. The patient had presented to ED stating she wanted to harm herself due to having been stressed out about her living situation. Patient was residing at [facility] [address] [place] [address]; ([phone]). On April 20, 2019 the patient was discharged to [facility] [address] [place] [address]; ). Patient left AMA from the facility because "too many people knew about what was in my medical chart" and presented herself to [facility] for infection treatment. Patient is now admitted to [facility] on a Voluntary status April 26, 2019. Upon Director Of Business Systems assessment, the patient presents with agitated mood and affect, and delusional thought process. Patient speech was very loud and hyperverbal. Safety Admin Assistant explained to patient that she can go back to [facility] or to a [facility], since she has limited Medicare days. Patient refused both options and stated, do not pressure me right now. Safety Admin Assistant will continue to work with patient and MD to form an appropriate discharge plan.
--- NOTE | 2019-04-27 12:49 | NUR ---
Social Work/Initial Discharge Note: Patient will be discharged back to [facility] facility to [place] [address] [facility] [place] [address]; ) when she is ready. SW will continue to work with patient and MD to ensure a safe and proper discharge plan.
--- NOTE | 2019-04-27 15:52 | NUR ---
Social Work Note: Pipe Coverer And Insulator spoke with patient regarding her discharge plans. Patient is increasingly agitated and present with labile mood. SW informed patient of her options for placement. Patient has very limited days for senior care facility and might still have the option to return to [facility] [address], [place] [address]; ). This senior copywriter spoke with Vic malik for the facility who stated that he will need to discuss it with the admissions and DON of the facility and convince them to consider admitting the patient back since she had left AMA. SW still waiting for a response. SW offered patient homeless fdc and patient refused. Patient is not cooperative with this senior copywriter in forming a discharge plan. Patient stated, "I am under too much pressure". SW attempted to calm patient but unsuccessful. Patient stated, "get out of my room I am getting a personal phone call" and shut the door. Patient will need to sign the Homeless patient waiver form upon discharge and provided homeless fdc packet. Patient may still have the opportunity to return to [facility] but are slight. SW will follow up on Tuesday.
--- NOTE | 2019-04-27 16:08 | NUR ---
FABI was informed by CHADD that the patient's dilaudid 8mg was discontinued and was inquiring if the medication could be tapered instead. FABI called Meera from [facility] @ [phone] who stated that the patient dilaudid was discontinued at the facility and the patient stated that the patient was upset and stated "how dare does the doctor discontinue my dilaudid". Meera was able to provide a copy of the patient's Order Summary Report with the documentation that the patient was on dilaudid [hydromorphine HCL 8 mg give 1 tablet orally every 4 hours as needed for severe pain 7-10]. Per Elijah POST OFFICE MARKUP CLERK: orders for Dilaudid 2mg PO Q4 PRN and pain management consultation for pain. Fabi called and spoke with Lisseth from Dr. Alfred Denise @ [phone] and informed her about the pain management consultation. Per Lisseth: she will informed DR. Coreas. Smitha VELA aware of new orders
[2019-04-27] MEDS ORDERED: DEXTROSE 50% 50 ML DISP.SYRIN IV PRN (16:15)
[2019-04-27] MEDS ORDERED: HYDROMORPHONE HCL 2 MG TABLET PO PRN (16:15)
[2019-04-27] MEDS ORDERED: INSULIN REGULAR, HUMAN 300 UNIT/3 ML VIAL SQ PRN (16:15)
[2019-04-27] MEDS: BLOOD SUGAR DIAGNOSTIC 1 EACH STRIP VI SCH ×2 (16:30→21:00)
[2019-04-27 17:19] VITALS: BP 156/92
--- NOTE | 2019-04-27 18:47 | NUR ---
Patient AAOx4. In no acute distress. Complaining of pain throughout shift. Patient upset with care; frequent redirection provided. Pain medicated adjusted to Dilaudid PO 4mg q6h PRN. All needs attended. Call light within reach. Will endorse care accordingly.
[2019-04-27 19:46] VITALS: BP 144/70
[2019-04-28] MEDS: HYDROMORPHONE HCL 2 MG TABLET PO PRN ×4 (01:22→22:53)
[2019-04-28] MEDS: CYCLOBENZAPRINE HCL 10 MG TABLET PO PRN ×2 (01:25→22:49)
[2019-04-28] MEDS: ZOLPIDEM 5 MG TABLET PO PRN ×2 (01:30→22:50)
[2019-04-28 04:30] VITALS: BP 118/50
[2019-04-28] MEDS: PANTOPRAZOLE SODIUM 40 MG TABLET.DR PO SCH (06:39)
[2019-04-28] MEDS: LEVOTHYROXINE SODIUM 25 MCG TABLET PO SCH (06:39)
[2019-04-28] MEDS: BLOOD SUGAR DIAGNOSTIC 1 EACH STRIP VI SCH ×4 (07:05→20:26)
--- NOTE | 2019-04-28 08:00 | NUR ---
RECEIVED PT RESTING IN BED COMFORTABLY. PT ALERT AND ORIENTED X3. NO ACUTE DISTRESS OR SOB NOTED. CALL LIGHT WITHIN REACH. BED LOCKED AND IN LOW POSITION. WILL CONTINUE TO MONITOR PATIENT FOR SAFETY AND COMFORT.
[2019-04-28] MEDS: MULTIVITAMINS,THERAPEUTIC TABLET PO SCH (09:00)
[2019-04-28] MEDS: PSYLLIUM SEED PACKET PO SCH ×2 (09:00→17:00)
[2019-04-28] MEDS: DULOXETINE 60 MG CAPSULE.DR PO SCH (09:35)
[2019-04-28] MEDS: FUROSEMIDE 40 MG TABLET PO SCH (09:37)
[2019-04-28] MEDS: GABAPENTIN 100 MG CAPSULE PO SCH ×2 (09:38→18:07)
[2019-04-28] MEDS: ASPIRIN EC 325 MG TABLET.DR PO SCH (09:38)
[2019-04-28] MEDS: METOPROLOL TARTRATE 25 MG TABLET PO SCH ×2 (09:39→20:27)
[2019-04-28] MEDS: ARIPIPRAZOLE 5 MG TABLET PO SCH (09:40)
[2019-04-28] MEDS: BACLOFEN 20 MG TABLET PO SCH ×3 (09:40→18:07)
[2019-04-28] MEDS: ESTRADIOL 1 MG TABLET PO SCH (09:41)
[2019-04-28] MEDS: DOCUSATE SODIUM 100 MG CAPSULE PO SCH (09:41)
[2019-04-28 11:30] VITALS: BP 126/69
[2019-04-28] MEDS: DOXYCYCLINE HYCLATE 100 MG TABLET PO SCH ×2 (11:56→22:49)
[2019-04-28 15:34] VITALS: BP 127/74
--- NOTE | 2019-04-28 18:00 | NUR ---
DR WALTERS CONSULTED WITH PATIENT. PT ALERT AND COOPERATIVE X3. COOPERATIVE AND PLEASANT. NEW ORDER FOR IBUPROFEN PUT IN, AWAITING PHARMACY VERIFICATION. NO ACUTE DISTRESS OR SOB NOTED. WILL GIVE REPORT ACCORDINGLY.
[2019-04-28 20:00] VITALS: BP 150/68
[2019-04-28] MEDS: IBUPROFEN 400 MG TABLET PO PRN (20:26)
[2019-04-29 04:53] VITALS: BP 140/67
[2019-04-29] MEDS: HYDROMORPHONE HCL 2 MG TABLET PO PRN ×3 (04:56→20:24)
[2019-04-29] MEDS: IBUPROFEN 400 MG TABLET PO PRN ×3 (04:56→21:12)
--- NOTE | 2019-04-29 06:13 | NUR ---
Pt slept well through the night after getting pain managed and Ambien given as well. Pt noted with labile mood, episodes of manipulative behavior, however easily redirected. needs attended promptly. thankful for services rendered. Able to sleep 7 hours. Will continue to monitor and endorse accordingly.
[2019-04-29] MEDS: LEVOTHYROXINE SODIUM 25 MCG TABLET PO SCH (06:22)
[2019-04-29] MEDS: PANTOPRAZOLE SODIUM 40 MG TABLET.DR PO SCH (06:22)
[2019-04-29] MEDS: BLOOD SUGAR DIAGNOSTIC 1 EACH STRIP VI SCH ×4 (06:28→21:00)
[2019-04-29] MEDS ORDERED: DOCUSATE SODIUM 100 MG CAPSULE PO SCH ×2 (09:00→17:00)
[2019-04-29] MEDS: MULTIVITAMINS,THERAPEUTIC TABLET PO SCH ×2 (09:00→09:14)
[2019-04-29] MEDS: PSYLLIUM SEED PACKET PO SCH ×3 (09:00→17:00)
[2019-04-29] MEDS: ASPIRIN EC 325 MG TABLET.DR PO SCH (09:14)
[2019-04-29] MEDS: ESTRADIOL 1 MG TABLET PO SCH (09:15)
[2019-04-29] MEDS: FUROSEMIDE 40 MG TABLET PO SCH (09:15)
[2019-04-29] MEDS: DULOXETINE 60 MG CAPSULE.DR PO SCH (09:15)
[2019-04-29] MEDS: GABAPENTIN 100 MG CAPSULE PO SCH ×2 (09:15→17:04)
[2019-04-29] MEDS: BACLOFEN 20 MG TABLET PO SCH ×3 (09:15→21:34)
[2019-04-29] MEDS: ARIPIPRAZOLE 5 MG TABLET PO SCH (09:15)
[2019-04-29] MEDS: METOPROLOL TARTRATE 25 MG TABLET PO SCH ×2 (09:16→21:34)
[2019-04-29] MEDS: CYCLOBENZAPRINE HCL 10 MG TABLET PO PRN (11:03)
[2019-04-29] MEDS: DOXYCYCLINE HYCLATE 100 MG TABLET PO SCH ×2 (11:03→22:34)
--- NOTE | 2019-04-29 11:45 | NUR ---
PATIENT REFUSED ACCUCHECK, EXPLAIN THE IMPORTANCE OF CHECKING THE BLOOD SUGAR PATIENT STILL REFUSED
[2019-04-29 11:55] VITALS: BP 134/72
[2019-04-29 16:12] VITALS: BP 136/73
--- NOTE | 2019-04-29 16:56 | NUR ---
PATIENT REFUSED ACCUCHECK, EXPLAIN THE IMPORTANCE OF CHECKING THE BLOOD SUGAR PATIENT STILL REFUSED
[2019-04-29] MEDS ORDERED: DOCUSATE SODIUM 250 MG CAPSULE PO SCH (17:00)
[2019-04-29 20:35] VITALS: BP 141/75
[2019-04-29] MEDS: DOCUSATE SODIUM 250 MG CAPSULE PO SCH (21:35)
[2019-04-29] MEDS: ZOLPIDEM 5 MG TABLET PO PRN (22:34)
[2019-04-30] MEDS: HYDROMORPHONE HCL 2 MG TABLET PO PRN ×4 (03:57→20:15)
[2019-04-30 05:56] VITALS: BP 133/71
[2019-04-30] MEDS: PANTOPRAZOLE SODIUM 40 MG TABLET.DR PO SCH (06:40)
[2019-04-30] MEDS: LEVOTHYROXINE SODIUM 25 MCG TABLET PO SCH (06:40)
[2019-04-30] MEDS: BLOOD SUGAR DIAGNOSTIC 1 EACH STRIP VI SCH ×3 (06:41→16:30)
--- NOTE | 2019-04-30 06:59 | NUR ---
PATIENT ASLEEP . NO S/S SOB NOTED. SAFETY AND COMFORT PROVIDED. CALL LIGHT IN REACH. WILL CONTINUE TO MONITOR
[2019-04-30] MEDS: DOCUSATE SODIUM 250 MG CAPSULE PO SCH ×2 (08:09→22:38)
[2019-04-30] MEDS: CYCLOBENZAPRINE HCL 10 MG TABLET PO PRN ×2 (08:21→20:19)
[2019-04-30] MEDS: PSYLLIUM SEED PACKET PO SCH ×2 (09:00→17:00)
[2019-04-30 09:10] LABS: BASOPHILS # (AUTO) 0.1 K/uL (0.0-8.0); BASOPHILS % (AUTO) 0.8 % (0.0-2.0); EOSINOPHILS # (AUTO) 0.2 K/uL (0.0-0.7); EOSINOPHILS % (AUTO) 2.5 % (0.0-7.0); HEMATOCRIT 39.6 % (31.2-41.9); HEMOGLOBIN 12.8 g/dL (10.9-14.3); LYMPHOCYTES # (AUTO) 2.6 K/uL (20.0-40.0); LYMPHOCYTES % (AUTO) 34.5 % (20.5-51.5); MEAN CORPUSCULAR HEMOGLOBIN 24.6 uug (24.7-32.8); MEAN CORPUSCULAR HGB CONC 32 g/dL (32.3-35.6); MEAN CORPUSCULAR VOLUME 75.8 fL (75.5-95.3); MONOCYTES # (AUTO) 0.5 K/uL (2.0-10.0); MONOCYTES % (AUTO) 6.5 % (0.0-11.0); NEUTROPHILS # (AUTO) 4.3 K/uL (1.8-8.9); NEUTROPHILS % (AUTO) 55.7 % (38.5-71.5); PLATELET COUNT (AUTO) 287 K/uL (179-408); RED BLOOD CELL COUNT(AUTO) 5.22 MIL/uL (3.63-4.92); WHITE BLOOD COUNT (AUTO) 7.7 K/uL (3.8-11.8)
[2019-04-30] MEDS: DULOXETINE 60 MG CAPSULE.DR PO SCH (10:08)
[2019-04-30] MEDS: ARIPIPRAZOLE 5 MG TABLET PO SCH (10:08)
[2019-04-30] MEDS: ASPIRIN EC 325 MG TABLET.DR PO SCH (10:09)
[2019-04-30] MEDS: BACLOFEN 20 MG TABLET PO SCH ×3 (10:10→22:38)
[2019-04-30] MEDS: METOPROLOL TARTRATE 25 MG TABLET PO SCH ×2 (10:11→22:41)
[2019-04-30] MEDS: MULTIVITAMINS,THERAPEUTIC TABLET PO SCH (10:11)
[2019-04-30] MEDS: GABAPENTIN 100 MG CAPSULE PO SCH ×2 (10:11→17:20)
[2019-04-30] MEDS: ESTRADIOL 1 MG TABLET PO SCH (10:22)
[2019-04-30] MEDS: FUROSEMIDE 40 MG TABLET PO SCH (10:22)
[2019-04-30 10:37] LABS: THYROID STIMULATING HORMONE 6.553 mIU/mL (0.358-3.740)
--- NOTE | 2019-04-30 11:03 | NUR ---
Social Work/Discharge Planning: hot blast worker spoke with Vic at [facility] [address] [facility] [place] [address]; ) who stated that due to the patient leaving AMA they can no longer accept her back. Director Of Medical Staff Services faxed patient's referral packet including: History and Physical, Consultation, Progress Notes, Medication List and Labs to the following facilities for review and possible retirement placement: [facility] attention to Vic [phone] [facility] Facility attention to Rylie
[2019-04-30 11:07] LABS: BILIRUBIN,TOTAL 0.3 mg/dL (0.2-1.0); MAGNESIUM 1.9 mg/dL (1.8-2.4); PHOSPHOROUS 3.4 mg/dL (2.5-4.9); POTASSIUM 3.7 mmol/L (3.5-5.1); TOTAL PROTEIN, SERUM 7.6 g/dL (6.4-8.2)
[2019-04-30] MEDS: DOXYCYCLINE HYCLATE 100 MG TABLET PO SCH ×2 (11:42→22:41)
[2019-04-30] MEDS ORDERED: POLYVINYL ALCOHOL OPHT DROPS 15 ML BOTTLE EACHEYE PRN (15:15)
[2019-04-30] MEDS: IBUPROFEN 400 MG TABLET PO PRN ×2 (16:04→20:19)
[2019-04-30 16:25] VITALS: BP 144/88
--- NOTE | 2019-04-30 18:16 | NUR ---
spoke with the patient today, patient calm and cooperative, seen wearing make up , patient seem to be happy with her situation, when ask about whats going on, patient verbalizes that according to her Doctor that she will have a midline and PICC line for her antibiotic, patient says that she's septic, will verify information with MD ,
[2019-04-30 20:00] VITALS: BP 165/73
--- NOTE | 2019-04-30 20:30 | NUR ---
VSS 97.4-98-18 BP 165/73. SATS 99% ON ROOM AIR. COLOR GOOD AND GENERAL APPEARANCE GOOD. A&O X 3 WITH APPROPRIATE RESPONSES. SKIN WARM, DRY, AND INTACT THROUGHOUT NO IV OR IVHL ABDOMEN SOFTLY ROUNDED WITH +BOWEL SOUNDS LUNGS CTA TO BUL. NO JVD OR OTHER EDEMAS WITH ALL PERIPHERAL PULSES+. NURSE MEDICATED FOR PAIN WITH DILAUDID 4 MG PO FOR >10/10. NURSE ADDED FLEXERIL AND MOTRIN FOR PAIN AT 20:17 P.M. PATIENT AMBULATES THROUGHOUT THE UNIT WITHOUT ASSIST. PATIENT RESTS QUIETLY AFTER MEDS. SHOWS NO SIGNS OF ACUTE CARDIAC/RESPIRATORY DISTRESS OR SUPPRESSION.
[2019-04-30] MEDS ORDERED: ATORVASTATIN 10 MG TABLET PO SCH (21:00)
--- NOTE | 2019-04-30 21:30 | NUR ---
PATIENT REFUSED ACCUCHECK FOR HS.
[2019-04-30] MEDS: ZOLPIDEM 5 MG TABLET PO PRN (22:41)
[2019-05-01 04:00] VITALS: BP 144/78
[2019-05-01] MEDS: PANTOPRAZOLE SODIUM 40 MG TABLET.DR PO SCH (05:43)
[2019-05-01] MEDS: LEVOTHYROXINE SODIUM 25 MCG TABLET PO SCH ×2 (05:43→05:54)
[2019-05-01] MEDS: HYDROMORPHONE HCL 2 MG TABLET PO PRN ×3 (05:44→13:59)
[2019-05-01] MEDS: CYCLOBENZAPRINE HCL 10 MG TABLET PO PRN ×2 (06:13→10:06)
[2019-05-01] MEDS: DOCUSATE SODIUM 250 MG CAPSULE PO SCH (06:26)
[2019-05-01] MEDS: PSYLLIUM SEED PACKET PO SCH (09:00)
[2019-05-01] MEDS: ESTRADIOL 1 MG TABLET PO SCH (09:49)
[2019-05-01] MEDS: DULOXETINE 60 MG CAPSULE.DR PO SCH (09:49)
[2019-05-01] MEDS: ASPIRIN EC 325 MG TABLET.DR PO SCH (09:49)
[2019-05-01] MEDS: FUROSEMIDE 40 MG TABLET PO SCH (09:49)
[2019-05-01] MEDS: ARIPIPRAZOLE 5 MG TABLET PO SCH (09:49)
--- NOTE | 2019-05-01 09:49 | NUR ---
Social Work/Discharge Note: Patient will be discharged today to [address] [address] ([phone]). Patient will be transported via Ambulance at 11:30am. Rylie management trainee marketing is aware and agreeable of patient admitting to the facility today. Patient is alert and oriented times 4 and is unable to provide self-care at this time and is willing to accept care at the facility. Patient is aware and agreeable with discharge plans. Patient denies suicidal or homicidal ideation. Patient presents with agitated mood and full range affect. Patient will be following up at the facility with psychiatrist Dr. Burr and human factors engineer Dr. Pagan. Patient will be admitting to room 35a. SW faxed patient referral packet to the facility (fax: [phone]). Patient signed the Homeless Patient Waiver Form. Patient was provided with the homeless retirement packet, which includes a list of emergency shelters, housing resources, drop in centers, and showers/hot meals centers. This also included the Homeless Information Hotline (386)-134-7547 or 211, [employer] , and the [facility] [phone]. Patient was also provided with outpatient mental health resources to [facility] Crisis Line , and the National Suicide Prevention Lifeline .
[2019-05-01] MEDS: METOPROLOL TARTRATE 25 MG TABLET PO SCH (09:50)
[2019-05-01] MEDS: BACLOFEN 20 MG TABLET PO SCH ×2 (09:50→13:58)
[2019-05-01] MEDS: GABAPENTIN 100 MG CAPSULE PO SCH (09:50)
[2019-05-01] MEDS: MULTIVITAMINS,THERAPEUTIC TABLET PO SCH (09:51)
[2019-05-01] MEDS: DOXYCYCLINE HYCLATE 100 MG TABLET PO SCH (12:06)
[2019-05-01 12:18] VITALS: BP 116/67
[2019-05-01] MEDS: IBUPROFEN 400 MG TABLET PO PRN (13:59)
--- NOTE | 2019-05-01 14:32 | NUR ---
DISCHARGE INSTRUCTIONS REVIEWED WITH PT. REPORT CALLED TO ANTHONY VELA AT [facility]. DISCHARGED TO AMBULANCE ATTENDANTS
== END 2019-05-01 16:13 | DRG 885 ==
LOC: GPSOV3 17:29
PROVIDERS: ADMIT Psychiatry & Neurology Psychiatry; ATTEND Nurse Practitioner Acute Care
DX: F33.3 Major depressive disorder, recurrent, severe with psychotic symptoms (principal); N18.9 Chronic kidney disease, unspecified; I13.0 Hypertensive heart and chronic kidney disease with heart failure and stage 1 through stage 4 chronic kidney disease, or unspecified chronic kidney disease; L03.90 Cellulitis, unspecified; Q07.00 Arnold-Chiari syndrome without spina bifida or hydrocephalus; G89.4 Chronic pain syndrome; E78.5 Hyperlipidemia, unspecified; Z76.5 Malingerer [conscious simulation]; I50.9 Heart failure, unspecified; E11.22 Type 2 diabetes mellitus with diabetic chronic kidney disease; E03.9 Hypothyroidism, unspecified; J44.9 Chronic obstructive pulmonary disease, unspecified; M19.90 Unspecified osteoarthritis, unspecified site
CPT/HCPCS: 36415; 83735; 84100; 84443; 85025; J1815